=== PATIENT | male | born 1985 | race Hispanic/Latino ===

== ENCOUNTER → 2017-08-27 | Outpatient (CLI) | payer OTHER | END | disposition home or self-care (01) | LOC: RAH 10:10 | PROVIDERS: ATTEND Family Medicine | DX: M75.101 Unspecified rotator cuff tear or rupture of right shoulder, not specified as traumatic (principal); M75.41 Impingement syndrome of right shoulder; G89.29 Other chronic pain; M25.512 Pain in left shoulder | CPT/HCPCS: 73221 ==